=== PATIENT | male | born 1990 | race African-American/Black ===

== ENCOUNTER 2018-12-09 20:58 | Emergency (ER) | payer OTHER ==
[2018-12-09 21:07] VITALS: RESP 16
--- NOTE | 2018-12-09 22:02 | XR ---
EXAMINATION TYPE: XR chest 2V DATE OF EXAM: 12/09/2018 COMPARISON: NONE HISTORY: Chest pain TECHNIQUE: Frontal and lateral views of the chest are obtained. FINDINGS: Heart and mediastinum are normal. Lungs are clear. Diaphragm is normal. Bony thorax is int act IMPRESSION: Normal chest.
[2018-12-09 22:19] VITALS: BP 127/88
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
[2018-12-09 22:57] VITALS: PULSE 76; TEMP 98.2
[2018-12-09 22:57] LABS: Amphetamine Screen,Urine Detected (NotDetected); Barbiturate Screen,Urine Not Detected (NotDetected); Benzodiazepines Screen,Urine Not Detected (NotDetected); Cocaine Screen,Urine Not Detected (NotDetected); Methadone Screen, Urine Not Detected (NotDetected); Opiate Screen,Urine Not Detected (NotDetected); Oxycodone Screen, Urine Not Detected (NotDetected); Phencyclidine Screen,Urine Not Detected (NotDetected); Tricyclic Antidepressant,Urine Not Detected (NotDetected); Urn Cannabinoid Scrn Detected (NotDetected)
== END 2018-12-09 22:57 | disposition home or self-care (01) ==
LOC: EC 20:58
DX: S29.9XXA Unspecified injury of thorax, initial encounter (principal); F17.200 Nicotine dependence, unspecified, uncomplicated; Z91.013 Allergy to seafood; Z88.8 Allergy status to other drugs, medicaments and biological substances; X58.XXXA Exposure to other specified factors, initial encounter
CPT/HCPCS: 71046; 80306; 93005; 99285

== ENCOUNTER 2019-01-11 12:51 | Emergency (ER) | payer OTHER ==
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
--- NOTE | 2019-01-11 14:22 | XR ---
EXAMINATION TYPE: XR hand complete RT DATE OF EXAM: 01/11/2019 COMPARISON: NONE HISTORY: Pain TECHNIQUE: 3 views FINDINGS: I see no fracture nor dislocation. Metacarpals are intact. The little finger appears intact . IMPRESSION: Negative right hand exam.
[2019-01-11 15:01] VITALS: BP 117/70; PULSE 88; RESP 16; TEMP 98
== END 2019-01-11 14:56 | disposition home or self-care (01) ==
LOC: EC 12:51
DX: S62.306A Unspecified fracture of fifth metacarpal bone, right hand, initial encounter for closed fracture (principal); F17.200 Nicotine dependence, unspecified, uncomplicated; Z91.013 Allergy to seafood; Z91.048 Other nonmedicinal substance allergy status; Y04.8XXA Assault by other bodily force, initial encounter; Y92.009 Unspecified place in unspecified non-institutional (private) residence as the place of occurrence of the external cause
CPT/HCPCS: 29125; 99283

== ENCOUNTER 2019-01-23 14:59 | Emergency (ER) | payer OTHER ==
[2019-01-23 15:30] VITALS: RESP 18
--- NOTE | 2019-01-23 16:23 | XR ---
EXAMINATION TYPE: XR hand complete RT DATE OF EXAM: 01/23/2019 COMPARISON: 01/11/2019 HISTORY: Right hand pain TECHNIQUE: Three-view right hand FINDINGS: There is a spiral fracture of the proximal diaphyseal fifth metacarpal with overlying soft tissue swelling. Some callus formation is evident. The interval has some lucency through the fracture . No new fractures are identified. IMPRESSION: 1. Subacute fracture of the proximal diaphysis, possibly spiral fracture with some mild interval rachele meg formation.
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
[2019-01-23 17:05] VITALS: BP 121/86; PULSE 59; TEMP 98.4
== END 2019-01-23 17:04 | disposition home or self-care (01) ==
LOC: EC 14:59
DX: S62.306A Unspecified fracture of fifth metacarpal bone, right hand, initial encounter for closed fracture (principal); F17.200 Nicotine dependence, unspecified, uncomplicated; W21.89XA Striking against or struck by other sports equipment, initial encounter; Y93.71 Activity, boxing; Y92.009 Unspecified place in unspecified non-institutional (private) residence as the place of occurrence of the external cause
CPT/HCPCS: 99283